=== PATIENT | male | born 1965 | race Caucasian/White ===

== ENCOUNTER 2017-11-01 20:54 | Emergency (ER) | payer SELFPAY ==
[~2017-11-01] VITALS: Ht 167.6 cm; Wt 72.3 kg
[2017-11-01 22:03] VITALS: Ht 167.6 cm; Wt 72.3 kg
[2017-11-02 01:13] VITALS: BP 126/91
== END 2017-11-02 01:13 | disposition home or self-care (01) ==
LOC: ED 20:54
DX: M70.52 Other bursitis of knee, left knee (principal); M70.51 Other bursitis of knee, right knee

== ENCOUNTER 2020-03-12 14:02 | Emergency (ER) | payer OTHER ==
[~2020-03-12] VITALS: Ht 167.6 cm; Wt 72.6 kg
[2020-03-12 14:05] VITALS: Ht 167.6 cm; Wt 72.6 kg
[2020-03-12 17:35] VITALS: BP 174/104
== END 2020-03-12 17:35 | disposition home or self-care (01) ==
LOC: ED 14:02
DX: S61.210A Laceration without foreign body of right index finger without damage to nail, initial encounter (principal); W45.8XXA Other foreign body or object entering through skin, initial encounter; Y93.89 Activity, other specified; Y92.89 Other specified places as the place of occurrence of the external cause; Y99.8 Other external cause status
CPT/HCPCS: J2001